=== PATIENT | male | born 1960 | race Caucasian/White ===

== ENCOUNTER 2019-03-17 06:39 | Day surgery (SDC) | payer OTHER ==
[2019-03-11 10:14] VITALS: BP 149/107
[2019-03-11 11:54] LABS: BASOPHIL % 0.3 % (0.0-0.2); EOSINOPHIL % 0.6 % (0.0-5.0); HEMOGLOBIN 16.5 g/dL (13.9-16.3); LYMPHOCYTES % 41.3 % (24.0-44.0); MEAN CELL HGB 30.4 pg (26-34); MEAN CELL HGB CONCENTRATION 35.9 g/dL (33-37); MEAN CORP VOLUME 84.9 fL (78-100); MEAN PLATELET VOLUME 10.1 fL (7.8-11.0); MONOCYTES # 0.5 10^3/uL (0.3-0.8); MONOCYTES % 7.3 % (5.0-12.0); NEUTROPHIL # 3.6 10^3/uL (1.8-7.7); NEUTROPHILS % 50.2 % (41.0-85.0); RED CELL DISTRIBUTION WIDTH 12.1 % (11.5-14.5); WHITE BLOOD CELL 7.1 10^3/uL (4.5-11.0)
[2019-03-11 12:13] LABS: CALCIUM 9.4 mg/dL (8.4-10.5); CARBON DIOXIDE 23.4 mmol/L (20.0-32)
--- NOTE | 2019-03-12 08:17 | PCM.EKG ---
[facility] Test Date: 2019-03-11 Test Time: 10:23:33 Pat Name: HILARIO STOVALL Department: Room: Gender: M [employer]: AWLVN : [id number] Requested By: MADDISON GONZALEZ Order Number: [id number] Reading MD: Darren Cruz Measurements Intervals [place] Rate: 72 P: 46 ME: 200 QRS: 22 QRSD: 82 T: -18 QT: 390 QTc: 427 Interpretive Statements Normal sinus rhythm Normal ECG No previous ECG available for comparison Electronically Signed On 03-12-2019 9:57:06 CDT by Darren Cruz Please click the below link to view image of tracing.
[~2019-03-17] VITALS: Ht 182.9 cm; Wt 102.5 kg
[2019-03-17 06:39] VITALS: BP 151/96
[~2019-03-17 06:39] MED LIST: ATOR10TA PO; LISI10TA2 PO; METF500T17 PO; MOVIPREP POWDER PACKET PO STA; MULT1TAB52 PO; NS 1000ML 1,000 ML ONE
[2019-03-17] MEDS ORDERED: LIDOCAINE 2% VIAL ONE (06:45)
[2019-03-17] MEDS ORDERED: DIPRIVAN IV ONE (06:46)
[2019-03-17] MEDS ORDERED: VERSED ONE (06:46)
[2019-03-17] MEDS ORDERED: SUBLIMAZE ONE (06:46)
[2019-03-17] MEDS ORDERED: LACTATED RINGERS 1,000 ML ONE (06:47)
[2019-03-17] MEDS ORDERED: NS 1000ML 1,000 ML IV SCH (07:00)
[2019-03-17] MEDS ORDERED: WATER ONE (07:03)
[2019-03-17 09:42] VITALS: BP 104/70
[2019-03-17 09:58] VITALS: BP 112/73
[2019-03-17 10:13] VITALS: BP 107/79
[2019-03-17 10:27] VITALS: BP 116/82
--- NOTE | 2019-03-17 10:38 | OPH ---
DATE OF SURGERY: PREOPERATIVE DIAGNOSES: History of dysphagia and need for screening. POSTOPERATIVE DIAGNOSES: 1. Gastroduodenitis. 2. Sliding type hiatal hernia. 3. Esophagitis. 4. Check path on atypical mucosa at the ileocecal valve. 5. Check path on sigmoid colon polyp. 6. Diverticular disease of the colon. SURGEON: Remi Henao DO BOAT [employer]PENTER: OR staff. ANESTHESIA: Excellent total intravenous anesthesia by Marah Rangel CRNA. PROCEDURES PERFORMED: 1. Esophagogastroduodenoscopy with biopsy. 2. Long flexible colonoscopy to the cecum with biopsy of the ileocecal valve as well as cold forceps polypectomy in the sigmoid colon. SPECIMENS: 1. Gastric mucosa. 2. Esophageal mucosa. 3. Atypical mucosa at the ileocecal valve. 4. Sigmoid colon polyp biopsies, all to path. ESTIMATED BLOOD LOSS: For this case is 13 mL. COUNTS: At the completion of the case, counts were correct per OR staff. DESCRIPTION OF PROCEDURE: The patient is a 58-year-old male, known from previous evaluation. Prior to procedure, informed consent was obtained. At the time of procedure, he was taken to the operative suite and placed in supine position. After time-out was completed, he was placed in left lateral recumbent position. With excellent sedation, esophagogastroduodenoscope was advanced transorally, pneumoinsufflation distally in the second portion of duodenum. Once the duodenum was adequately visualized, camera was slowly withdrawn to facilitate visualization of duodenal bulb and the pylorus. Duodenal bulb shows minimal duodenitis. The pylorus showed some gastritis and biopsies were obtained. Retroflexed maneuver was performed. There was noted to be a sliding type hiatal hernia on evaluation. The fundus was within normal limits. Camera was reduced. Hemostasis noted to be good at the biopsy site. Stomach was decompressed. The scope was slowly withdrawn. Distal esophagus does show esophagitis and biopsies were obtained. With good hemostasis noted, camera was advanced to the body of the stomach and decompressed. Next, after decompression was accomplished, camera was slowly withdrawn to facilitate visualization of distal, mid and proximal esophagus aside from previously described biopsy site. There were no significant lesions identified. Vocal cords were visualized within normal limits. Procedure was discontinued. The patient remained in the OR. Timeout was previously completed. With adequate sedation, rectal exam was performed. There are no masses. There is noted to be asymmetrically enlarged prostate. Next, the colonoscope was advanced transanally with pneumoinsufflation proximally to the level of the cecum. Once cecum was visualized, quality of the prep was adequate. Camera was slowly withdrawn. Ileocecal valve shows an atypical mucosa that is biopsied. Once the biopsies were obtained and hemostasis noted to be good, camera was slowly withdrawn to facilitate visualization of the remainder of the ascending colon, hepatic flexure, transverse colon, splenic flexure. In the descending colon and sigmoid, there was some occasional diverticular disease. In the sigmoid, a small polyp was identified that was removed with cold forceps. With good hemostasis noted, the camera was withdrawn to the remainder of the sigmoid colon and rectum to the level of 5 cm, it was retroflexed and reinserted. Anal verge is visualized within normal limits. Camera was reduced. Colon was decompressed. Colonoscope was removed. The patient tolerated this procedure well. No acute complications noted. Remi Henao DO DR: ANANTH/luis enrique JOB# [id number]
[2019-03-17 10:40] VITALS: BP 119/91
== END 2019-03-17 10:48 | disposition home or self-care (01) | DRG 395 ==
LOC: SDC 06:39
PROVIDERS: ATTEND Surgery
DX: K63.5 Polyp of colon (principal); K63.89 Other specified diseases of intestine; K29.50 Unspecified chronic gastritis without bleeding; K29.80 Duodenitis without bleeding; K20.8 Other esophagitis; K44.9 Diaphragmatic hernia without obstruction or gangrene; K57.30 Diverticulosis of large intestine without perforation or abscess without bleeding; N40.0 Benign prostatic hyperplasia without lower urinary tract symptoms; I10 Essential (primary) hypertension; E66.9 Obesity, unspecified; E11.9 Type 2 diabetes mellitus without complications; Z90.49 Acquired absence of other specified parts of digestive tract; Z98.890 Other specified postprocedural states; Z72.89 Other problems related to lifestyle; Z79.84 Long term (current) use of oral hypoglycemic drugs; Z79.899 Other long term (current) drug therapy; Z68.30 Body mass index [BMI] 30.0-30.9, adult
CPT/HCPCS: 36415; 43239; 45380; 80053; 82948; 85025; 85610; 85730; 88305 ×2; 93005; J2001; J2250; J3010; J3490; J7030; J7120